=== PATIENT | female | born 1965 | race Hispanic/Latino ===

== ENCOUNTER 2020-02-04 19:19 | Emergency (ER) | payer SELFPAY ==
--- NOTE | 2020-02-04 20:12 | RAD ---
RADIOGRAPH RIGHT HAND FOUR VIEWS: 02/04/20 HISTORY: 54-year-old female status post acute traumatic injury to right hand with traumatic deformity and numb ness. COMPARISON: None. FINDINGS: There is dislocation, with angulation in the ulnar direction, of the fourth middle phalanx relative t o the fourth proximal phalanx. No fracture is identified. IMPRESSION: Acute, traumatic dislocation of right fourth proximal interphalangeal joint. POS: JIN
[2020-02-04] MEDS ORDERED: Bacitracin 1 PK ONE (20:20)
[2020-02-04] MEDS ORDERED: Boostrix 0.5 ML (Tdap) VIAL ONE (20:20)
[2020-02-04] MEDS ORDERED: Lidocaine 1% PF 5 ML VIAL ONE ×2 (20:20→20:21)
[2020-02-04] MEDS ORDERED: Morphine 2 MG/ML VIAL ONE (20:30)
--- NOTE | 2020-02-04 21:51 | RAD ---
RADIOGRAPH RIGHT FOURTH DIGIT 3 VIEWS: 02/04/20 at 9:11 p.m. HISTORY: 54-year-old female with dislocation of PIP joint of right ring finger. Status post reduction. COMPARISON: 02/04/20 at 7:52 p.m. FINDINGS: The fourth PIP joint is now located. A tiny chip or avulsion fracture fragment is demonstrated in the soft tissues along the volar side of that joint. No other fracture is visualized. There is significa nt soft tissue swelling around the PIP. IMPRESSION: 1. Successful reduction of the dislocated fourth proximal interphalangeal joint of the right nñuez d. 2. Chip fracture or avulstion fracture there. 1. POS: JIN
== END 2020-02-04 21:42 | disposition home or self-care (01) ==
LOC: ERS 19:19
DX: S62.614A Displaced fracture of proximal phalanx of right ring finger, initial encounter for closed fracture (principal); S63.284A Dislocation of proximal interphalangeal joint of right ring finger, initial encounter; Z23 Encounter for immunization; W01.0XXA Fall on same level from slipping, tripping and stumbling without subsequent striking against object, initial encounter
CPT/HCPCS: 26742; 90471; 90715; 96372; 99283; J2270